=== PATIENT | female | born 1970 | race Caucasian/White ===

== ENCOUNTER → 2019-09-19 | Outpatient (CLI) | payer BC ==
[~2019-09-19] MED LIST: BUPR300T54 PO; DULO30CA52 PO; LINACLOTIDE PO
== END | disposition home or self-care (01) ==
LOC: OIH 13:50
PROVIDERS: ATTEND Internal Medicine
DX: S80.01XA Contusion of right knee, initial encounter (principal); X58.XXXA Exposure to other specified factors, initial encounter; Y93.89 Activity, other specified; Y92.89 Other specified places as the place of occurrence of the external cause; Y99.8 Other external cause status
CPT/HCPCS: 73560

== ENCOUNTER → 2022-02-18 | Outpatient (CLI) | payer OTHER ==
[~2022-02-18] MED LIST changes: +BUPR-317 PO; -BUPR300T54 PO
== END | disposition home or self-care (01) ==
LOC: RAH 15:25
PROVIDERS: ATTEND Internal Medicine
DX: Z13.6 Encounter for screening for cardiovascular disorders (principal)
CPT/HCPCS: 75571

== ENCOUNTER 2022-06-16 07:58 | Emergency (ER) | payer OTHER ==
[~2022-06-16] VITALS: Ht 160 cm; Wt 62.6 kg
[2022-06-16] MEDS ORDERED: LACTATED RINGERS 1000ML 1,000 ML IV ONE (08:30)
[2022-06-16 08:44] LABS: BASOPHILS % (AUTO) 0.4 % (0.0-5.0); EOSINOPHILS % (AUTO) 0.6 % (0.0-8.0); HEMATOCRIT 37.2 % (36-48); LYMPHOCYTES % (AUTO) 13.6 % (21.0-51.0); MEAN CORPUSCULAR HEMOGLOBIN 28.8 pg (27.0-33.0); MEAN CORPUSCULAR HGB CONC 32.8 g/dL (32.0-36.0); MEAN CORPUSCULAR VOLUME 87.7 fL (79-99); MONOCYTES % (AUTO) 7.1 % (3.0-13.0); NEUTROPHILS % (AUTO) 77.9 % (40.0-77.0); PLATELET COUNT (AUTO) 250 K/uL (130-400); RED BLOOD CELL COUNT(AUTO) 4.24 MIL/uL (4.00-5.50); WHITE BLOOD COUNT (AUTO) 10.4 K/uL (4.8-10.8)
[2022-06-16 08:53] LABS: APPEARANCE,URINE CLEAR (CLEAR); BILIRUBIN,URINE NEGATIVE (NEGATIVE); COLOR,URINE YELLOW (YELLOW); GLUCOSE, URINE (UA) NEGATIVE (NEGATIVE); KETONES,URINE NEGATIVE (NEGATIVE); LEUKOCYTE ESTERASE ,URINE NEGATIVE (NEGATIVE); NITRATE,URINE NEGATIVE (NEGATIVE); OCCULT BLOOD,URINE NEGATIVE (NEGATIVE); PROTEIN,URINE NEGATIVE (NEGATIVE); UROBILINOGEN,URINE 0.2 mg/dL (0.2-1.0)
[2022-06-16] MEDS ORDERED: KETOROLAC 30MG VIAL (30MG/ML) IVP STA (09:01)
[2022-06-16] MEDS: ACETAMINOPHEN 325 MG TAB PO ONE ×2 (09:03→12:40)
[2022-06-16 09:16] LABS: ALBUMIN 4.1 g/dL (3.5-5.0); CREATININE 1.5 mg/dL (0.5-1.5); POTASSIUM 4.6 mmol/L (3.5-5.1); TOTAL PROTEIN, SERUM 7.5 g/dL (6.0-8.3)
[2022-06-16] MEDS ORDERED: IOHEXOL 350 MG/ML 100ML INFUS..BTL IV ONE (10:40)
[2022-06-16] MEDS ORDERED: TAMS-1 PO (12:00)
[2022-06-16] MEDS ORDERED: CEPH500B PO (12:00)
[2022-06-16] MEDS ORDERED: KETO10TA2 PO (12:00)
[2022-06-16] MEDS ORDERED: 0.9%NACL 1000ML 1,000 ML IV ONE (12:30)
[2022-06-16] MEDS ORDERED: ACETAMINOPHEN 500 MG TABLET PO STA (12:31)
[2022-06-16] MEDS ORDERED: ACETAMINOPHEN 325 MG TAB ONE (12:32)
[2022-06-16] MEDS ORDERED: TAMSULOSIN HCL 0.4 MG CAP.ER.24H ONE (12:32)
[2022-06-16] MEDS ORDERED: ONDANSETRON 4MG INJ IVP STA (12:56)
[2022-06-16] MEDS ORDERED: MORPHINE 2 MG SYG IVP STA (12:56)
[2022-06-16] MEDS ORDERED: ONDANSETRON 4MG INJ ONE (12:58)
[2022-06-16] MEDS ORDERED: MORPHINE 2 MG SYG ONE (12:58)
[2022-06-16 13:49] VITALS: BP 133/69
== END 2022-06-16 14:08 | disposition home or self-care (01) ==
LOC: EDH 07:58
DX: N20.0 Calculus of kidney (principal); Z85.3 Personal history of malignant neoplasm of breast; Z88.2 Allergy status to sulfonamides; Z90.49 Acquired absence of other specified parts of digestive tract
CPT/HCPCS: 99285; 74177; 96374; 96361; 80053; 85025; 81003; 36415; J7120; J2405; J1885; Q9967

== ENCOUNTER → 2022-07-10 | Outpatient (CLI) | payer OTHER ==
[~2022-07-10] MED LIST changes: +CEPH500B PO; +KETO10TA2 PO; +TAMS-1 PO
== END | disposition home or self-care (01) ==
LOC: RAH 09:59
PROVIDERS: ATTEND Urology
DX: N13.2 Hydronephrosis with renal and ureteral calculous obstruction (principal); M47.815 Spondylosis without myelopathy or radiculopathy, thoracolumbar region; K76.0 Fatty (change of) liver, not elsewhere classified; Z90.49 Acquired absence of other specified parts of digestive tract
CPT/HCPCS: 74176

== ENCOUNTER → 2022-08-24 | Outpatient (CLI) | payer BC, OTHER ==
[~2022-08-24] MED LIST changes: +LACT10SO9 PO
== END | disposition home or self-care (01) ==
LOC: RAH 08:55
PROVIDERS: ATTEND Urology
DX: N20.2 Calculus of kidney with calculus of ureter (principal)
CPT/HCPCS: 74018; 76100

== ENCOUNTER 2022-08-25 20:25 | Emergency (ER) | payer BC ==
[~2022-08-25] VITALS: Ht 160 cm; Wt 63.5 kg
[~2022-08-25 20:25] MED LIST changes: -LACT10SO9 PO
[2022-08-25] MEDS ORDERED: ACETAMINOPHEN 500 MG TABLET PO ONE (21:00)
[2022-08-25 21:30] LABS: BASOPHILS % (AUTO) 0.5 % (0.0-5.0); EOSINOPHILS % (AUTO) 0.4 % (0.0-8.0); HEMATOCRIT 39.4 % (36-48); LYMPHOCYTES % (AUTO) 3.7 % (21.0-51.0); MEAN CORPUSCULAR HEMOGLOBIN 28.2 pg (27.0-33.0); MEAN CORPUSCULAR HGB CONC 33.8 g/dL (32.0-36.0); MEAN CORPUSCULAR VOLUME 83.7 fL (79-99); MONOCYTES % (AUTO) 6.7 % (3.0-13.0); NEUTROPHILS % (AUTO) 88.2 % (40.0-77.0); PLATELET COUNT (AUTO) 222 K/uL (130-400); RED BLOOD CELL COUNT(AUTO) 4.71 MIL/uL (4.00-5.50); RED CELL DISTRIBUTION WIDTH 12.8 % (11.0-15.5); WHITE BLOOD COUNT (AUTO) 7.9 K/uL (4.8-10.8)
[2022-08-25 21:31] LABS: APPEARANCE,URINE CLEAR (CLEAR); BILIRUBIN,URINE NEGATIVE (NEGATIVE); COLOR,URINE LIGHT-YELLOW (YELLOW); GLUCOSE, URINE (UA) NEGATIVE (NEGATIVE); KETONES,URINE NEGATIVE (NEGATIVE); LEUKOCYTE ESTERASE ,URINE NEGATIVE Leu/uL (NEGATIVE); NITRATE,URINE NEGATIVE (NEGATIVE); OCCULT BLOOD,URINE NEGATIVE (NEGATIVE); PROTEIN,URINE NEGATIVE (NEGATIVE); UROBILINOGEN,URINE 0.2 mg/dL (0.2-1.0)
[2022-08-25 21:43] LABS: RBC,URINE 0-1 /HPF (0-1); SQUAMOUS EPITHELIAL CELL,UR RARE /HPF (0-2); WBC,URINE 0-1 /HPF (0-1)
[2022-08-25 21:46] LABS: CREATININE 1.1 mg/dL (0.5-1.5); POTASSIUM 3.5 mmol/L (3.5-5.1)
[2022-08-25 21:51] LABS: ALBUMIN 4.5 g/dL (3.5-5.0); TOTAL PROTEIN, SERUM 8.4 g/dL (6.0-8.3)
[2022-08-25] MEDS ORDERED: CEFTRIAXONE 2GM VIAL IVP ONE (22:00)
[2022-08-25 23:15] VITALS: BP 127/75
[2022-08-25] MEDS ORDERED: LACT10SO9 PO (23:19)
== END 2022-08-25 23:44 | disposition home or self-care (01) ==
LOC: EDH 20:25
DX: N12 Tubulo-interstitial nephritis, not specified as acute or chronic (principal); N13.30 Unspecified hydronephrosis; N83.202 Unspecified ovarian cyst, left side; K59.00 Constipation, unspecified; Z20.822 Contact with and (suspected) exposure to COVID-19; Z88.2 Allergy status to sulfonamides; Z90.49 Acquired absence of other specified parts of digestive tract; Z85.3 Personal history of malignant neoplasm of breast
CPT/HCPCS: 99284; 74176; 96374; 71045; 87635; 80053; 85025; 87040 ×2; 87804 ×2; 83605; 81001; 36415; 93005; C9803; J0696

== ENCOUNTER → 2022-09-23 | Outpatient (CLI) | payer BC ==
[~2022-09-23] MED LIST changes: +IOHEXOL 350 MG/ML 100ML INFUS..BTL IV ONE; +LACT10SO9 PO
== END | disposition home or self-care (01) ==
LOC: RAH 10:00
PROVIDERS: ATTEND Urology
DX: R10.9 Unspecified abdominal pain (principal); Z90.49 Acquired absence of other specified parts of digestive tract
CPT/HCPCS: 74400; Q9967